=== PATIENT | male | born 1990 ===

== ENCOUNTER 2023-11-04 18:16 | Emergency (ER) | payer OTHER, SELFPAY ==
[2023-11-04 18:54] VITALS: BP 163/102
[2023-11-04 20:19] VITALS: BP 163/83
[2023-11-04 20:22] LABS: % Basophils 0.3 % (0-2); % Eosinophils 1.2 % (0-6); % Immature Granulocytes 0.5 % (0-0.5); % Lymphocytes 26.3 % (20.5-51.1); % Monocytes 6.8 % (1.7-9.3); % Neutrophils 64.9 % (42.2-75.2); Absolute Eosinophils 0.1 10^3/uL (0-0.7); Absolute Lymphocytes 2.3 10^3/uL (1.2-3.4); Absolute Monocytes 0.6 10^3/uL (0.1-0.6); Absolute Neutrophils 5.8 10^3/uL (1.4-6.5); Hematocrit 44.4 % (39.0-52.0); Hemoglobin 15.4 g/dL (13.0-18.0); Mean Corp Hgb Conc. 34.7 g/dL (33.0-37.0); Mean Corpuscular Hgb 27.4 pg (27.0-31.0); Mean Corpuscular Volume 78.9 fL (80.0-94.0); Mean Platelet Volume 9.1 fL (7.4-10.4); Nucleated Red Blood Cells % 0 % (-); Platelet Count 245 10^3/uL (130-400); Red Blood Cell Count 5.63 10^6/uL (4.70-6.10); Red Cell Dist. Width 12.9 % (11.5-14.5); White Blood Cell Count 8.9 10^3/uL (4.8-10.8)
[2023-11-04 20:40] LABS: ALT (SGPT) 68 U/L (0-50); AST (SGOT) 55 U/L (17-59); Albumin 4.2 g/dl (3.5-5.0); Alkaline Phosphatase 80 U/L (38-126); Blood Urea Nitrogen 19 mg/dl (9-20); Calcium 10.1 mg/dl (8.4-10.2); Carbon Dioxide 28 mmol/L (22-30); Chloride 100 mmol/L (98-107); Glucose 187 mg/dl (70-99); Potassium 4.2 mmol/L (3.5-5.1); Sodium 138 mmol/L (135-145); Total Bilirubin 0.5 mg/dl (0.2-1.3); Total Protein 6.6 g/dl (6.3-8.2); eGFR > 60.00
--- NOTE | 2023-11-04 20:47 | ED.GENMED ---
History of Present Illness
General
Chief Complaint: Chest Pain
Source: patient
Exam Limitations: none
Time Seen by Provider: 11/04/23 20:23
Travel History
Have you had any contact with someone who has COVID-19?: No
Do you have any symptoms of coronavirus? Fever > 100 degrees, chills, cough, shortness of breath, sore throat, loss of taste or smell, muscle aches, or headache?: No
History of Present Illness
History of Present Illness:
This is a 33 year old male that comes in with c/o upper back pain into his jaw. Sates that this morning he awoke and was nauseated. States that around 12 noon he started with some pain across the upper shoulder and into his jaw. States that it was
like when you flex and have some discomfort. States that he feels stiff. Sates that he went home and took some Tylenol and his headache went away but he still has the upper back tightness. Denies any fever, chills, chest pain, SOB, abd pain,
vomiting, diarrhea, dizziness, urinary burning.
Past History
Past History
ED Past Medical History: Other (Brugada syndrome, Sleep apnea, )
ED Past Surgical History: Tonsilectomy and Other (Rhinoplasty)
Social History
Tobacco: Non-smoker
Alcohol: None
Drug: None
Personal: Single
Living: with family
Review of Systems
Review of Systems
All Other Systems: ROS reviewed and negative except as documented in HPI and ROS
Constitutional: Reports no symptoms; Denies fever or chills
EENT: Reports no symptoms
Respiratory: Denies cough or trouble breathing
Cardiac: Reports no symptoms; Denies chest pain
ABD/GI: Reports nausea; Denies abdominal pain, vomiting or diarrhea
: Reports no symptoms; Denies dysuria, frequency or urgency
Musculoskeletal: Reports back pain (Upper back tightness and into the jaw)
Skin: Reports no symptoms
Neurological: Reports headache; Denies dizzy
Psychiatric: Reports no symptoms
Phy Exam
General Physical Exam
General Presentation: well appearing and no apparent distress
General age: appears stated age
General Skin: warm and dry
General Habitus: normal
General Mental: alert
General Hydration: appears well hydrated
ENT Exam
ENT Exam: TM's normal, pharynx normal and neck supple
Eye Exam
Eye Exam: EOMI
Cardiovascular Exam
Cardiovascular Exam: regular rate/rhythm, no edema and normal peripheral pulses
Pulmonary Exam
Pulmonary Exam: lungs clear, no respiratory distress, no rales, chest non tender, no crackles, no rhonchi, no wheezing and no cough
Gastrointestinal Exam
Gastrointestinal Exam: normal bowel sounds, non tender, soft, no organomegaly, no pulsatile mass, non distended and other (Obese)
Musculoskeletal Exam
Musculoskeletal Exam: full ROM and no edema
Skin Exam
Skin Exam: normal color, warm/dry, no rash and no petechia
Psychiatric Exam
Psychiatric Exam: normal mood/affect
Scores
Heart Score for Chest Pain Patients
STEMI patient?: No
History: Slightly or Non-Suspicious
ECG: Normal
Age: </= 45 years
Risk Factors: 1 or 2 Risk Factors
Troponin: </= Normal Limit
Heart Score for Chest Pain Patients: 1
Heart Score Risk: 2.5% MACE over next 6 weeks
Course
Orders/Labs/Results
Orders:
Orders
11/04/23 18:57
Electrocardiogram (*1) Urgent
Reason for Study: Chest Pain
EKG- Treatment ONCE
11/04/23 20:13
Complete Blood Count/With Diff Urgent
Comprehensive Metabolic Panel Urgent
Troponin I Urgent
11/04/23 22:52
EKG- Treatment ONCE
11/04/23 23:08
Troponin I Urgent
11/04/23 23:09
Ketorolac [Toradol] 30 mg IV NOW STA
11/04/23 23:10
Ketorolac [Toradol] 30 mg .ROUTE .STK-MED ONE
11/04/23 23:15
Electrocardiogram (*1) Urgent
Reason for Study: Other
Other Reason for Exam: Repeat with Troponin
Abnormal Lab Results
11/04/23
20:13
MCV 78.9 L fL
(80.0-94.0)
Glucose 187 H mg/dl
(70-99)
ALT 68 H U/L
(0-50)
11/04/23 20:13
11/04/23 20:13
Glucose nonfasting. ALT ekevation.
Vital Signs
Initial and Last Documented VS:
Initial Vital Signs
Temp Pulse Resp BP Pulse Ox
98.2 F 102 22 163/102 97
11/04/23 18:54 11/04/23 18:54 11/04/23 18:54 11/04/23 18:54 11/04/23 18:54
Last Documented Vital Signs
Temp Pulse Resp BP Pulse Ox
97.7 F 104 16 157/88 94
11/04/23 23:19 11/04/23 22:45 11/04/23 20:30 11/04/23 22:00 11/04/23 21:45
MDM/Problems Addressed
Differential Diagnosis Includes:
Muscle spams. Coronary syndrome
MDM/Problems Addressed:
This is a 33 year old male that comes in with c/o upper back discomfort with jaw pain. States that he awoke with nausea today and then he started about 12 noon with this discomfort across his shoulders and into his jaw. 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
Will get labs.
Repeat ECG: rate 100, NSR, NOrmal axis. QRS normal. T wave inversion, III, aVR, Checked by Dr. Graham
Back into see patient. Patient state that he has no further discomfort after the Toradol. Explained that this is most likely musculoskeletal in nature as he had no chest pain. His troponin is in a negative range. However, will have patient follow up
with the [facility] for further evaluation. Patient to return with any chest pain, or increasing pain.
Chronic conditions affecting care:
Borgata Syndrome
Acute Exacerbation and/or Progression of Chronic Illness:
Borgata syndrome
*Pulse Oximetry
Patient hypoxic: no
*EKG
Interpreted by ED Provider?: Yes
Heart Rate: 104
Rate: tachycardiac
Rhythm: sinus
[place]: normal axis
Interval: normal interval
QRS Pattern: normal QRS
Ischemia: no ischemia (Checked by Dr. Ware)
*Microbiology Quality Control Technician Interpretation
Rate: tachycardiac
Heart Rate: 104
Rhythm: sinus tachycardia
*Critical Care Note
Total Time (30-74mins, 75-104mins- exclusive of procedures): Not Applicable
ED Attending Note
-
Portions of this chart may have been created with voice recognition software.� Occasional wrong word or��sound alike� substitutions may have occurred due to the inherent limitations of voice recognition software.
Discharge Plan
Departure
Patient Disposition: Home (Routine Discharge)
Date of Disposition: 11/04/23
Time of Disposition: 23:43
Patient with high blood pressure during this ER visit?: Yes
Condition: Good
Covid-19: Not Applicable
Discharge Problem:
Musculoskeletal back pain
Instructions: Chest Pain NON-[facility] Follow Up, BLOOD PRESSURE, Musculoskeletal Pain
Prescriptions:
No Action
azithromycin 250 MG tablet
250 mg PO DAILY Qty: 6 0RF
Rx Instructions:
Take 2 tablets on the first day then one tablet on the days following
prednisone 20 MG tablet
40 mg PO DAILY Qty: 8 0RF
albuterol sulfate 1 PUFF HFA aerosol inhaler
1 puff inhalation R QID PRN (Reason: breathing) Qty: 1 0RF
cefdinir 300 mg capsule
300 mg PO BID 10 Days Qty: 20 0RF
Referrals:
Slick Mckeon MD [Family Provider] -
Activity Restrictions/Additional Instructions:
As discussed, your blood work shows that your blood sugar is elevated. Your Troponin are both in a normal range. This may be musculoskeletal pain as the muscles felt tight. Please follow up with your [facility] Supervisor for recheck. You may also use
Tylenol 1000mg every 6 hours for pain and heat or ice to help decrease the pain. IF YOU HAVE INCREASED OR CHANGING PAIN, OR YOU HAVE ANY OTHER CONCERNS PLEASE RETURN TO THE EMERGENCY ROOM.
Interventions
Interventions:
*Risk Screen - Suicide Last Done: 11/04/23 18:54
*Neglect/Abuse Screening Last Done: 11/04/23 18:54
ED- Cardiac Assessment Last Done: 11/04/23 20:20
Discharge Date and Time
Print Language: AZERI
[2023-11-04 20:48] LABS: Troponin I 0.019 ng/ml
[2023-11-04 21:00] VITALS: BP 153/107
[2023-11-04 22:00] VITALS: BP 157/88
[2023-11-04] MEDS: TORADOL 30 MG IV (23:19)
[2023-11-04 23:38] LABS: Troponin I 0.022 ng/ml
[2023-11-05 00:06] VITALS: BP 134/89
== END 2023-11-05 00:08 | disposition home or self-care (01) ==
LOC: EMR 18:16
PROVIDERS: Clinical Nurse Specialist Family Health; Emergency Medicine; EMERGENCY PHYSICIAN Emergency Medicine; FAMILY PHYSICIAN Internal Medicine
DX: M54.9 Dorsalgia, unspecified (principal)
CPT/HCPCS: 99284; 96374; 80053; 84484; 85025; 93005